=== PATIENT | female | born 1990 | race Caucasian/White ===

== ENCOUNTER 2020-11-08 13:25 | Outpatient (CLI) | payer OTHER ==
[2020-11-08 14:14] LABS: HEMOGLOBIN 12.5 gm/dl (12.3-15.3); RED BLOOD COUNT 4.48 M/UL (4.00-5.10); WHITE BLOOD COUNT 9.2 K/UL (4.5-11.0)
== END 2020-11-08 14:39 | disposition home or self-care (01) ==
LOC: GENOP 13:25
PROVIDERS: Obstetrics & Gynecology
DX: Z01.812 Encounter for preprocedural laboratory examination (principal); O82 Encounter for cesarean delivery without indication
CPT/HCPCS: 81001; 85025

== ENCOUNTER 2020-11-11 05:43 | Inpatient (IN) | payer OTHER ==
[~2020-11-11] VITALS: Ht 162.6 cm; Wt 90.3 kg
[2020-11-11] MEDS ORDERED: PRENATABS RX T1 EACH PO (06:43)
[2020-11-11] MEDS ORDERED: DOCUSATE SODIU100 MG PO (07:50)
[2020-11-11] MEDS ORDERED: HYDROCODON-ACE1 EAC4 PO (07:50)
[2020-11-11] MEDS ORDERED: IBUPROFEN600 MG PO (07:50)
[2020-11-12 07:26] LABS: HEMOGLOBIN 11.9 gm/dl (12.3-15.3)
== END 2020-11-12 16:08 | disposition home or self-care (01) | DRG 788 ==
LOC: OB 05:43
PROVIDERS: ADMIT Obstetrics & Gynecology
PROC: 4A1HXCZ Monitoring of Products of Conception, Cardiac Rate, External Approach (ICD-10-PCS; 2020-11-11)
PROC: 10D00Z1 Extraction of Products of Conception, Low, Open Approach (ICD-10-PCS; principal; 2020-11-11 07:30)
DX: O34.211 Maternal care for low transverse scar from previous cesarean delivery (principal); Z3A.39 39 weeks gestation of pregnancy; Z37.0 Single live birth; Z20.822 Contact with and (suspected) exposure to COVID-19
CPT/HCPCS: 36415; 82800; 85014; 85018; C9113; J0690; J2274; J2550; J2590; J3010; J7120

== ENCOUNTER 2021-10-29 13:22 | Emergency (ER) | payer OTHER ==
[~2021-10-29 13:22] MED LIST: DOCUSATE SODIU100 MG PO; HYDROCODON-ACE1 EAC4 PO; IBUPROFEN600 MG PO; PRENATABS RX T1 EACH PO
[2021-10-29 14:14] LABS: HEMOGLOBIN 13.9 gm/dl (12.3-15.3); RED BLOOD COUNT 4.78 M/UL (4.00-5.10); WHITE BLOOD COUNT 5.9 K/UL (4.5-11.0)
[2021-10-29 14:48] LABS: BUN/CREATININE RATIO 11 (0-10)
[2021-10-29] MEDS ORDERED: IBUPROFEN800 MG PO (19:21)
== END 2021-10-29 19:30 | disposition home or self-care (01) ==
LOC: ER1 13:22
DX: U07.1 COVID-19 (principal); F17.210 Nicotine dependence, cigarettes, uncomplicated; Z98.818 Other dental procedure status
CPT/HCPCS: 0240U; 70450; 70486; 80053; 81001; 83605; 84703; 85025; 87081; 87086; 87880; 96361; 96374; 99284; J1885; Q9967